=== PATIENT | male | born 1975 | race African-American/Black ===

== ENCOUNTER 2016-09-07 11:08 | Emergency (ER) | payer OTHER ==
--- NOTE | ~2016-09-07 | EKG ---
PATIENT: CORBY SEO UNIT #: [id number] Ventricular Rate: 59 BPM Atrial Rate: 59 BPM P-R Interval: 186 ms QRS Duration: 78 ms Q-T Interval: 406 ms QTC Calculation(Bezet): 401 ms P Buchanan: 35 degrees Calculated R Buchanan: 29 degrees Calculated T Buchanan: 37 degrees Diagnosis Line: Sinus bradycardia Diagnosis Line: Nonspecific ST and T wave abnormality Diagnosis Line: Abnormal ECG Diagnosis Line: No previous ECGs available Diagnosis Line: Confirmed by CHACHO VAALOS MD ([id number]) on Diagnosis Line: 09/07/2016 3:08:37 PM INTERPRETING MD: JAY JAY
== END 2016-09-07 12:50 | disposition home or self-care (01) ==
LOC: CED 11:08 → EDBD 11:08 → CED 12:20
DX: I95.1 Orthostatic hypotension (principal); R25.2 Cramp and spasm; I10 Essential (primary) hypertension; Z86.73 Personal history of transient ischemic attack (TIA), and cerebral infarction without residual deficits; Z79.899 Other long term (current) drug therapy; Z79.82 Long term (current) use of aspirin
CPT/HCPCS: 93005; 99284